=== PATIENT | female | born 1940 | race African-American/Black ===

== ENCOUNTER → 2018-04-01 | Outpatient (CLI) | payer MEDICARE, MEDICAID ==
[~2018-04-01] MED LIST: DIATR MEGLU/DIATRIZOATE SOLN 120ML ONE
== END | disposition home or self-care (01) ==
LOC: CT 09:03
PROVIDERS: ATTEND Internal Medicine Gastroenterology
DX: D64.9 Anemia, unspecified (principal); K92.1 Melena; K59.00 Constipation, unspecified; I11.9 Hypertensive heart disease without heart failure
CPT/HCPCS: 74176; Q9963

== ENCOUNTER 2018-09-27 18:10 | Inpatient (IN) | payer MEDICARE, MEDICAID ==
[~2018-09-27] VITALS: Ht 162.6 cm; Wt 60.8 kg
[2018-09-27] MEDS ORDERED: LOSA100T14 PO (18:27)
[2018-09-27] MEDS ORDERED: CLON1PAT11 TD (18:27)
[2018-09-27] MEDS ORDERED: ATOR40TA70 PO (18:27)
[2018-09-27] MEDS ORDERED: AMLO5TAB88 PO (18:27)
[2018-09-27] MEDS ORDERED: CLON-457 PO (18:27)
[2018-09-27] MEDS ORDERED: ASPI-1159 PO (18:27)
[2018-09-27 21:33] LABS: BASOPHILS % 0.8 % (0.0-2.0); EOSINOPHILS % 1.8 % (0.0-5.0); HEMATOCRIT. 23.7 % (36.0-48.0); HEMOGLOBIN. 7.2 g/dL (12.0-16.0); MEAN CORPUSCULAR HEMOGLOBIN 23.2 pg (28.0-32.0); MEAN CORPUSCULAR VOLUME 76.8 fL (81.0-99.0); MEAN PLATELET VOLUME 7.8 fl (7.4-10.4); NEUTROPHILS % 55.4 % (40.0-76.0); PLATELET 294 x1000/uL (130-400); RED BLOOD CELL COUNT 3.09 mill/uL (4.2-5.4); RED CELL DISTRIBUTION WIDTH 18.6 % (11.6-14.6)
[2018-09-27 21:40] LABS: CHLORIDE 106 mEq/L (98-107)
[2018-09-27 21:41] LABS: PARTIAL THROMBOPLASTIN TIME 24.7 sec (23.4-31.0); PROTHROMBIN TIME 10.4 sec (9.1-11.1)
[2018-09-27] MEDS ORDERED: DOCUSATE SODIUM 100MG CAPSULE PO PRN (22:15)
[2018-09-27] MEDS ORDERED: IPRATROPIUM/ALBUTEROL 0.5-3(2.5)MG/3ML NEB INH PRN (22:15)
[2018-09-27] MEDS ORDERED: GUAIFENESIN 200MG/10ML SUGAR FREE UDC PO PRN (22:15)
[2018-09-27] MEDS ORDERED: MAGNESIUM/ALUMINUM HYDROXIDE/SIMETHICONE 30ML UDC PO PRN (22:15)
[2018-09-27] MEDS ORDERED: ONDANSETRON HCL 4MG/2ML INJ IV PRN (22:15)
[2018-09-27] MEDS ORDERED: ACETAMINOPHEN 325MG TABLET PO PRN (22:15)
[2018-09-27 22:37] LABS: TOTAL IRON BINDING CAPACITY 452 ug/dL (250-450)
[2018-09-28] VITALS (12 sets, daily range): BP systolic 103–197; BP diastolic 50–80
[2018-09-28] MEDS ORDERED: SODIUM CHLORIDE 0.9% 1,000 ML IV SCH (03:15)
[2018-09-28] MEDS: CLONIDINE 0.1MG TABLET PO PRN (03:47)
[2018-09-28] MEDS: PANTOPRAZOLE SODIUM 40 MG/VIAL IV SCH (08:50)
[2018-09-28] MEDS: DEXT 5%/0.9% NACL 1,000 ML IV SCH (08:58)
[2018-09-28] MEDS ORDERED: FERROUS SULFATE 325MG TABLET PO SCH (09:00)
[2018-09-28 11:17] LABS: BASOPHILS % 0.6 % (0.0-2.0); HEMATOCRIT. 26.3 % (36.0-48.0); HEMOGLOBIN. 8.5 g/dL (12.0-16.0); LYMPHOCYTES % 21.2 % (20.0-50.0); MEAN CORPUSCULAR HEMOGLOBIN 25.2 pg (28.0-32.0); MEAN CORPUSCULAR VOLUME 78.2 fL (81.0-99.0); MONOCYTES % 9.3 % (2.0-8.0); NEUTROPHILS % 66.9 % (40.0-76.0); PLATELET 245 x1000/uL (130-400); RED BLOOD CELL COUNT 3.36 mill/uL (4.2-5.4); RED CELL DISTRIBUTION WIDTH 18.1 % (11.6-14.6)
[2018-09-28] MEDS: AMLODIPINE 5MG TABLET PO SCH (11:25)
[2018-09-28 12:03] LABS: FOLIC ACID (FOLATE) SERUM >20 ng/mL ng/mL (>5.38)
[2018-09-28 12:04] LABS: CHLORIDE 109 mEq/L (98-107)
[2018-09-28 12:14] LABS: VITAMIN B12 SERUM 403 pg/mL (211-911)
[2018-09-28 12:44] LABS: PARTIAL THROMBOPLASTIN TIME 24.5 sec (23.4-31.0); PROTHROMBIN TIME 10.2 sec (9.1-11.1)
[2018-09-28] MEDS ORDERED: SIMETHICONE 40 MG/0.6 ML 30ML ONE (15:12)
[2018-09-28] MEDS ORDERED: SODIUM CHLORIDE 0.9% 10ML VIAL ONE (15:12)
[2018-09-28] MEDS ORDERED: MIDAZOLAM HCL 5 MG/5 ML VIAL ONE (16:02)
[2018-09-28] MEDS ORDERED: FENTANYL CITRATE/PF 50MCG/ML 2ML VIAL ONE (16:03)
[2018-09-28] MEDS ORDERED: MIDAZOLAM HCL 2 MG/2 ML VIAL IV PRN (16:06)
[2018-09-28] MEDS ORDERED: FENTANYL CITRATE/PF 50MCG/ML 2ML VIAL IV PRN (16:07)
[2018-09-28] MEDS ORDERED: DIPHENHYDRAMINE 50MG/ML VIAL ONE (16:28)
[2018-09-28] MEDS ORDERED: DIPHENHYDRAMINE 50MG/ML VIAL IV PRN (16:32)
[2018-09-28] MEDS ORDERED: ATORVASTATIN CALCIUM 40MG TABLET PO SCH (21:00)
[2018-09-29] VITALS: BP 173/66
[2018-09-29] MEDS: CLONIDINE 0.1MG TABLET PO PRN ×2 (01:25→02:59)
[2018-09-29] MEDS ORDERED: AMLODIPINE 5MG TABLET PO SCH ×2 (02:00→21:00)
[2018-09-29] MEDS: DEXT 5%/0.9% NACL 1,000 ML IV SCH (03:05)
[2018-09-29 04:00] VITALS: BP 160/69
[2018-09-29 06:57] LABS: BASOPHILS % 0.6 % (0.0-2.0); EOSINOPHILS % 2.7 % (0.0-5.0); HEMATOCRIT. 27.6 % (36.0-48.0); HEMOGLOBIN. 8.9 g/dL (12.0-16.0); LYMPHOCYTES % 18.9 % (20.0-50.0); MEAN CORPUSCULAR HEMOGLOBIN 25.3 pg (28.0-32.0); MEAN PLATELET VOLUME 8.3 fl (7.4-10.4); MONOCYTES % 8.5 % (2.0-8.0); NEUTROPHILS % 69.3 % (40.0-76.0); PLATELET 214 x1000/uL (130-400); RED BLOOD CELL COUNT 3.49 mill/uL (4.2-5.4); RED CELL DISTRIBUTION WIDTH 17.8 % (11.6-14.6)
[2018-09-29 07:42] LABS: CHLORIDE 109 mEq/L (98-107)
[2018-09-29] MEDS: PANTOPRAZOLE SODIUM 40 MG/VIAL IV SCH (09:11)
[2018-09-29] MEDS: AMLODIPINE 5MG TABLET PO SCH (09:11)
[2018-09-29] MEDS ORDERED: IOHEXOL-350 100 ML BOTTLE ONE (09:36)
[2018-09-29] MEDS ORDERED: BARIUM SULFATE(VOLUMEN) 450 ML ORAL.SUSP ONE (09:36)
[2018-09-29] MEDS ORDERED: IRON SUCROSE COMPLEX 100 MG/5 ML ML IV SCH (13:00)
[2018-09-29 15:39] VITALS: BP 121/70
== END 2018-09-29 16:55 | disposition home or self-care (01) | DRG 244 ==
LOC: ER 18:10 → 6EST 21:54 → ENRESERV 09-28 01:08
PROVIDERS: ADMIT Family Medicine Adult Medicine; ATTEND Family Medicine Adult Medicine
PROC: 30233N1 Transfusion of Nonautologous Red Blood Cells into Peripheral Vein, Percutaneous Approach (ICD-10-PCS; principal; 2018-09-27)
PROC: 0DB68ZX Excision of Stomach, Via Natural or Artificial Opening Endoscopic, Diagnostic (ICD-10-PCS; 2018-09-28)
DX: K57.31 Diverticulosis of large intestine without perforation or abscess with bleeding (principal); I27.20 Pulmonary hypertension, unspecified; I38 Endocarditis, valve unspecified; D50.9 Iron deficiency anemia, unspecified; K29.70 Gastritis, unspecified, without bleeding; I34.0 Nonrheumatic mitral (valve) insufficiency; J45.909 Unspecified asthma, uncomplicated; E78.5 Hyperlipidemia, unspecified; I10 Essential (primary) hypertension; Z96.659 Presence of unspecified artificial knee joint; K59.00 Constipation, unspecified; Z79.82 Long term (current) use of aspirin; Z86.73 Personal history of transient ischemic attack (TIA), and cerebral infarction without residual deficits; Z90.710 Acquired absence of both cervix and uterus; Z88.2 Allergy status to sulfonamides
CPT/HCPCS: 36415; 71045; 74177; 80048; 82607; 82728; 82746; 83540; 83550; 86850; 86900; 86920; 88305; 88312; 88313; 93005; 99285; C1893; C9113; J1200; J2250; J3010; J7040; J7042; P9016; Q9967